=== PATIENT | male | born 1950 | race Caucasian/White ===

== ENCOUNTER → 2022-01-28 | Outpatient (CLI) | payer MEDICARE, SELFPAY ==
--- NOTE | 2022-01-28 12:47 | CDU_ITS ---
Reason For Study: amaurosis fugax Rt. Velocities/BP Lt. Velocities/BP Prox CCA 130.2/26.1 cm/sec. Prox CCA 132.1/33.4 cm/sec. Mid CCA 117.0/24.9 cm/sec. Mid CCA 122.9/29.8 cm/sec. Dist CCA 103.5/26.2 cm/sec. Dist CCA 121.1/27.9 cm/sec. Prox ICA 96.1/32.3 cm/sec. Prox ICA 59.7/19.0 cm/sec. Mid ICA 101.1/24.9 cm/sec. Mid ICA 61.9/22.3 cm/sec. Dist ICA 91.2/32.3 cm/sec. Dist ICA 60.8/23.4 cm/sec. Rt. ICA/CCA = .9. Lt. ICA/CCA = .5. Prox ECA 82.6/13.9 cm/sec. Prox ECA 57.5/13.5 cm/sec. Rt. Vert. 41.0/9.1 cm/sec. Lt. Vert. 56.4/15.7 cm/sec. Right Extracranial There is intimal thickening but no significant atherosclerotic plaque noted in the right common carotid artery. There is heterogeneous, irregular atherosclerotic plaque noted in the right internal carotid artery. There is intimal thickening but no significant atherosclerotic plaque noted in the right external carotid artery. Antegrade flow is noted in the right vertebral artery. Left Extracranial There is intimal thickening but no significant atherosclerotic plaque noted in the left common carotid artery. There is intimal thickening but no significant atherosclerotic plaque noted in the left internal carotid artery. There is intimal thickening but no significant atherosclerotic plaque noted in the left external carotid artery. Antegrade flow is noted in the left vertebral artery. Procedure Carotid Duplex 62084. This is a Carotid Duplex examination using B-mode, color flow and specral Doppler. The exam was diagnostic. Exam performed in department. VL/Carotid Duplex Ultrasound Interpretation Summary Mild (<50%) stenosis right extracranial internal carotid. No significant athero sclerotic plaque or stenosis noted in the left internal carotid artery. Flow within the vertebral a rteries is antegrade bilaterally. Ordering Physician: Manny Gordon Performed By: Vargas Samuels RVT
== END | disposition home or self-care (01) ==
PROVIDERS: PCP Internal Medicine; Referring Provider Ophthalmology; Visit Provider Ophthalmology
DX: G45.3 Amaurosis fugax (principal)
CPT/HCPCS: 93880